=== PATIENT | male | born 1965 | race Caucasian/White ===

== ENCOUNTER 2020-11-14 09:51 | Emergency (ER) | payer OTHER, SELFPAY ==
[2020-11-14 09:51] VITALS: BP 147/98; PULSE 78; RESP 15; TEMP 36.7; O2SAT 98; BMI 32.9
--- NOTE | 2020-11-14 10:14 | RAD_ITS ---
STUDY: X-RAY - RIGHT ANKLE REASON FOR EXAM: Male, 55 years old. Injury/Pain TECHNIQUE: view(s) of the ankle. COMPARISON: None. FINDINGS: Normal visualized distal tibia. Normal medial malleolus. There is a fracture of the distal fibula and lateral malleolus.. There is slight medial widening at the tibiotalar articulation. Normal visualized talus and calcaneus. The visualized subtalar, talonavicular, calcaneocuboid and tarsal articulations are normal. Mild soft tissue edema. RAD/Ankle min 3 Views IMPRESSION: There is a fracture of the distal fibula and lateral malleolus.. There is slight medial widening at the tibiotalar articulation. Electronically Signed: Godwin Doshi DO at 10:50 EDT Tel [phone], Service support ,
--- NOTE | 2020-11-14 11:08 | ED.VIS.LOWEX ---
HPI History of Present Illness HPI Narrative: Patient presents with right ankle injury that occurred today. Patient states he was chasing after his dog when he twisted his right ankle. Patient states he fell. Patient denies any head injury or loss of consciousness. Patient describes his pain as stabbing or pressure. Patient states it is better whenever he holds his lower leg. Patient states it is worse with movement. Patient denies any paresthesias or weakness. Patient denies any other injuries. Chief Complaint: Lower Extremity Injury Informant: patient Occured/Mechanism Mechanism/Context: Yes fall Onset/Context/Timing Onset: Today Context: Sudden Onset Timing: Continuous Quality of Pain: Stabbing and - (Pressure) Location: Right ankle Worsened by: Movement Relieved by: Holding right leg Associated Symptoms Associated Symptoms: Negative for Parasthesia, Weakness and Loss of Funtion PFSH [facility] Medical History Hypertension Home Medications oxycodone-acetaminophen 1 tab PO Q6H PRN PRN 5 Days #20 tablet 11/14/20 [Rx Last Taken Unknown] Allergy/AdvReac Type Severity Reaction Status Date / Time No Known Allergies Allergy Verified 11/14/20 11:41 Social History Smoking Status: Former smoker ROS ROS ED Constitutional Constitutional ED: Denies chills or fever(s) Eyes Eyes: Denies blurry vision or change in vision ENT ENT ED: Denies rhinorrhea or sore throat Cardiovascular Cardiovascular: Denies chest pain or palpitations Respiratory/Chest Respiratory/Chest: Denies cough or dyspnea Gastrointestinal Gastrointestinal: Denies nausea or vomiting Genitourinary Genitourinary ED: Denies dysuria or hematuria Musculoskeletal Musculoskeletal: Denies back pain or neck pain Integumentary Reports Abrasions; Denies abscess or rash Neurologic Neurologic: Denies headache(s) or weakness Allergic/Immunologic Allergic/Immunologic ED: Denies mouth swelling or urticaria EXAM Physical Exam Const Vital Signs: 11/14/20 09:51 11/14/20 11:50 Temperature 98.0 F Temperature Source Temporal Pulse Rate 78 Respiratory Rate 15 16 Blood Pressure 147/98 H Blood Pressure Mean 114 Pulse Ox 98 Oxygen Delivery Method Room Air Positive well nourished and well developed General Appearance ED: well developed HEENT Reports moist mucous membranes Neck full ROM Extremity Extremity Narrative: There is tenderness and edema over the right ankle. There is a superficial abrasion on the medial aspect of the right ankle. There is no active bleeding noted. There is no communication into the joint. Range of motion of the right ankle was limited in all motions secondary to pain. There is no tenderness over the proximal fibula or fifth metatarsal. There is a strong pedal pulse noted. Capillary refill is less than 2 seconds in all digits. Sensation was intact to light touch in all digits. Neuro oriented x3, CN's II-XII intact bilaterally, moves all extremities and no sensory deficits noted Sensorium / Orientation: alert Motor Exam: strength 5/5 throughout Psych mental status grossly normal MDM MDM MDM Narrative Medical decision making narrative: X-rays of the right ankle were obtained. There are 3 views. On my interpretation, there is a minimally displaced fracture of the distal fibula starting at the level of the joint and extending proximally. There is some slight widening of the medial mortise. There are no other fractures noted. There is some soft tissue swelling noted. Radiologist also interpreted the x-rays and agrees. Patient was given a dose of oxycodone here. Patient was given a tetanus booster. Patient was given a prescription for Percocet. Patient was placed in a well-padded custom made sugar tong splint using 4 inch Ortho-Glass. Neurovascular exam was intact before and after the procedure. Patient tolerated procedure well. Patient was given crutches. Patient was instructed to ice and elevate the right ankle. Patient is from [facility]. Patient was instructed to follow-up with an orthopedist when he gets home. Patient understood and was agreeable with the plan. All questions were answered. Radiography Diagnostic Testing: Clinical Impression(s) from Imaging Studies Ankle X-Ray 11/14/20 10:14 IMPRESSION: There is a fracture of the distal fibula and lateral malleolus.. There is slight medial widening at the tibiotalar articulation. Electronically Signed: Godwin Doshi DO at 10:50 EDT Tel [phone], Service support , Procedures Lower Extremity Splints Lower Extremity Splint: Orthoglass and Stirrup Splint Fabrication: Fabricated Location: Right Discharge Plan Triage Chief Complaint: Lower Extremity Injury ED Provider: Emmanuel Aden Dx/Rx/DC Orders Clinical Impression: Closed fracture of distal end of right fibula Instructions: ED Ankle Fracture, Distal Fibula Prescriptions: New oxycodone-acetaminophen [oxycodone-acetaminophen] 1 TABLET tablet 1 tab PO Q6H PRN PRN (Reason: pain) 5 Days Qty: 20 RF: 0 Primary Care Provider: Grayson Serna,Out of Referrals: [facility] Doctor,Out of [Primary Care Provider] - 3-5 Days Disposition Disposition: Home, Self Care Discharge Date/Time: 11/14/20 11:51
[2020-11-14] MEDS: oxyCODONE 5 MG Tablet PO (11:41)
[2020-11-14 11:50] VITALS: RESP 16
== END 2020-11-14 11:51 | disposition home or self-care (01) ==
PROVIDERS: Emergency Provider Emergency Medicine
DX: S82.491A Other fracture of shaft of right fibula, initial encounter for closed fracture (principal); X50.1XXA Overexertion from prolonged static or awkward postures, initial encounter; Z87.891 Personal history of nicotine dependence
CPT/HCPCS: 29515; 73610; 90715; 99284